=== PATIENT | female | born 1935 | race Caucasian/White ===

== ENCOUNTER → 2017-05-09 | Outpatient (CLI) | payer MEDICARE, BC ==
[~2017-05-09] MED LIST: ACETAMINOPHEN PO; ARIXTRA2.5 MG/0.5 SUBQ; BONIVA150 MG PO; COUMADIN PO; HYDROCODONE-APA1 T41 PO; METFORMIN PO; NAPROXEN; NORFLEX100 MG PO; OMEPRAZOLE20 M2 PO; OS-CAL 500500 MG PO; TRAMADOL HCL50 M1 PO; TYLENOL #3 PO; TYLOX 5/500 CAP1 CAP PO; VESICARE5 MG; VESICARE5 MG PO; VITAMIN D PO; VITAMIN D2000 UNI1 PO
--- NOTE | ~2017-05-09 | MR18 ---
[facility] A Service of [facility] & [facility] RADIOLOGY TEXT RESULTS PATIENT: YAZMIN STOCK LOCATION: [facility] : 39 UNIT #: [id number] AGE: [address]: Raina Lemus MD SEX: F ORDER DR: [id number] [address] [address] [id number] O MR#: [id number] Acc #: [id number] NAME: YAZMIN STOCK : 1935 SEX: F STUDY DATE/TIME: 05/09/2017 15:48 UNIT: [facility] ROOM: STUDY DESCRIPTION: MR Brain Wo Contrast Attending Physician: Raina Lemus M.D. Referring Physician: Raina Lemus M.D. Ordering Physician: Raina Lemus M.D. Primary Care Physician: Raina Lemus M.D. MRI CENTER REPORT This report is preliminary unless electronic signature is present. EXAM MRI of the brain without contrast dated 05/09/17 COMPARISON: MRI of the brain without contrast dated 01/27/16 HISTORY Status post fall dated 03/17/17. Patient fell off porch and hit head with laceration to the forehead. The patient now has right orbital region and forehead pain, pressure for two weeks. FINDINGS Multisequence multiplanar imaging of the brain was obtained without contrast. No acute stroke, space occupying intracranial mass, mass effect, midline shift or hydrocephalus. Scattered hyperintense T2 signal lesions are noted in the periventricular and to a lesser degree the subcortical white matter and nevaeh. Stable. Vascular flow voids of the major cerebral arteries and dural venous sinuses are not completely occluded in these thicker slices. Mild S shaped nasal septal deviation is seen. Paranasal sinuses, orbits with the ocular structures are unremarkable. Mild bilateral mastoid mucosal thickening is noted. Thick slices through the sella with the pituitary gland, pineal region and upper cervical spine are unremarkable. IMPRESSION 1. No acute abnormality. 2. Nonspecific hyperintense T2 signal lesions are noted in the white matter and nevaeh, likely related to mild chronic microvascular ischemic change or migraine based on age and statistics, stable. Dictated by... [facility] A Service of [facility] & [facility] RADIOLOGY TEXT RESULTS PATIENT: YAZMIN STOCK [id number] : [birth year] UNIT #: [id number] AGE: [address]: Raina Lemus MD SEX: F ORDER DR: Nenita Hernandez M.D. THIS IS AN ELECTRONICALLY VERIFIED REPORT Nenita Hernandez M.D. at 05/11/2017 2:50 PM CPR/cmm TD: 05/10/2017 14:13 JOB #: [id number] MRI CENTER REPORT Page 1 of 1
== END | disposition home or self-care (01) ==
LOC: SMRI 15:15
DX: S09.93XA Unspecified injury of face, initial encounter (principal); R93.8 Abnormal findings on diagnostic imaging of other specified body structures
CPT/HCPCS: 70551